=== PATIENT | male | born 1955 | race Caucasian/White ===

== ENCOUNTER → 2020-06-14 | Outpatient (CLI) | payer BC ==
[~2020-06-14] MED LIST: ISOVUE-370 76% 100ML VIAL As Ordered ONE
[2020-06-14 10:34] LABS: BLOOD UREA NITROGEN 24 MG/DL (7-18); CREATININE FOR GFR 1.17 MG/DL (0.70-1.30); GLOMERULAR FILTRATION RATE > 60.0 (>49)
--- NOTE | 2020-06-15 07:45 | REP ---
INDICATION: RIGHT LOWER QUADRANT PAIN. COMPARISON: None. TECHNIQUE: Axial contrast-enhanced images of the pelvis with coronal and sagittal reformations using 100 cc Isovue 370 intravenous contrast material. FINDINGS: Visualized portions of the small and large bowel are relatively normal and without acute obstruction or inflammatory process. Scattered sigmoid diverticula noted without acute diverticulitis. Normal terminal ileum, appendix and cecum identified in the right lower quadrant. Normal bladder and age-appropriate prostate/seminal vesicles. Evidence for prior inguinal hernia repair. Visualized abdominal aorta and vasculature appear normal. No ascites. No free air. No adenopathy. Musculoskeletal structures demonstrate age-related changes without acute osseous abnormality. IMPRESSION: No acute process appreciated. Few scattered sigmoid diverticula without acute diverticulitis. <Electronically signed by Adal Tristan > 06/15/20 [id number]
== END ==
LOC: M RAD 09:38
PROVIDERS: ATTEND Surgery
DX: R10.31 Right lower quadrant pain (principal); K57.30 Diverticulosis of large intestine without perforation or abscess without bleeding
CPT/HCPCS: 36415; 72193; 82565; 84520; Q9967

== ENCOUNTER → 2021-09-17 | Outpatient (CLI) | payer MEDICARE, BC ==
[2021-09-17 16:32] LABS: HEPATITIS B SURFACE ANTIBODY NEGATIVE (POSITIVE); HEPATITIS B SURFACE ANTIGEN NEGATIVE (NEGATIVE); HEPATITIS C VIRUS ABY INDEX 0.1 INDEX (<0.8)
[2021-09-19 04:07] LABS: HEPATITIS A IgG TOTAL Negative (Negative); HEPATITIS B CORE ANTIBODY IGG Negative (Negative)
== END ==
LOC: M PLALAB 12:29
PROVIDERS: ATTEND Internal Medicine Infectious Disease
DX: K76.0 Fatty (change of) liver, not elsewhere classified (principal)

== ENCOUNTER → 2022-02-21 | Outpatient (CLI) | payer MEDICARE, BC ==
[~2022-02-21] MED LIST changes: +GASTROGRAFIN SOLUTION 30ML (Q9963) As Ordered ONE
== END ==
LOC: M RAD 11:01
PROVIDERS: ATTEND Internal Medicine Gastroenterology
DX: R19.06 Epigastric swelling, mass or lump (principal); K45.8 Other specified abdominal hernia without obstruction or gangrene
CPT/HCPCS: 74177; Q9963; Q9967

== ENCOUNTER → 2022-03-13 | Outpatient (CLI) | payer MEDICARE, BC ==
[~2022-03-13] MED LIST changes: +ATOR40TA75 PO; +FINA5TAB2 PO; -GASTROGRAFIN SOLUTION 30ML (Q9963) As Ordered ONE; +GLIM2TAB29 PO; +HYDR-3363 PO; -ISOVUE-370 76% 100ML VIAL As Ordered ONE; +METF500T13 PO; +TAMS1CAP17 PO; +TERB250T91 PO
== END ==
LOC: M LABSMTC 10:09
PROVIDERS: ATTEND Anesthesiology
DX: Z01.812 Encounter for preprocedural laboratory examination (principal); Z11.52 Encounter for screening for COVID-19

== ENCOUNTER 2022-03-18 07:24 | Day surgery (SDC) | payer MEDICARE, BC ==
[~2022-03-18] VITALS: Ht 182.9 cm; Wt 112.0 kg
[~2022-03-18 07:24] MED LIST changes: +NS 1,000 ML IV ONE
[2022-03-18] MEDS ORDERED: fentaNYL 100 MCG/2 ML INJECTION As Ordered ONE (09:55)
[2022-03-18] MEDS ORDERED: LIDOCAINE 2% 100MG/5ML SDV (FOR ANES.) As Ordered ONE (10:15)
[2022-03-18] MEDS ORDERED: propofoL 200 MG/20 ML VIAL As Ordered ONE ×4 (10:15→10:48)
[2022-03-18] MEDS ORDERED: GLYCOPYRROLATE INJ 0.2 MG/ML 2 ML VIAL As Ordered ONE (10:15)
[2022-03-18] MEDS ORDERED: ELEVIEW SUBMUCOSAL INJ 10ML AMP As Ordered ONE ×2 (10:19→10:26)
[2022-03-18 11:20] VITALS: BP 144/94
== END 2022-03-18 11:35 | disposition home or self-care (01) ==
LOC: M OPP 07:24
PROVIDERS: ATTEND Internal Medicine Gastroenterology
DX: D12.0 Benign neoplasm of cecum (principal); D12.4 Benign neoplasm of descending colon; K57.30 Diverticulosis of large intestine without perforation or abscess without bleeding; K64.8 Other hemorrhoids; Z80.0 Family history of malignant neoplasm of digestive organs; K22.89 Other specified disease of esophagus; K44.9 Diaphragmatic hernia without obstruction or gangrene; K22.70 Barrett's esophagus without dysplasia; Z79.02 Long term (current) use of antithrombotics/antiplatelets; Z79.1 Long term (current) use of non-steroidal anti-inflammatories (NSAID); Z79.84 Long term (current) use of oral hypoglycemic drugs; Z79.899 Other long term (current) drug therapy; Z91.040 Latex allergy status; E11.9 Type 2 diabetes mellitus without complications; F84.0 Autistic disorder; N40.0 Benign prostatic hyperplasia without lower urinary tract symptoms; Z85.47 Personal history of malignant neoplasm of testis; Z92.3 Personal history of irradiation; F17.220 Nicotine dependence, chewing tobacco, uncomplicated; Z87.438 Personal history of other diseases of male genital organs; Z80.3 Family history of malignant neoplasm of breast; Z80.1 Family history of malignant neoplasm of trachea, bronchus and lung; Z80.43 Family history of malignant neoplasm of testis; Z80.52 Family history of malignant neoplasm of bladder
CPT/HCPCS: 43239; 45381; 45385; 88305; J3010

== ENCOUNTER → 2022-04-29 | Outpatient (CLI) | payer MEDICARE, BC ==
[~2022-04-29] MED LIST changes: -NS 1,000 ML IV ONE
[2022-04-29 13:19] LABS: CHLORIDE LEVEL 100 MMOL/L (98-107); POTASSIUM SERUM 4.5 MMOL/L (3.5-5.1); SODIUM LEVEL 138 MMOL/L (136-145)
[2022-04-29 13:20] LABS: ALBUMIN 4.2 G/DL (3.2-5.2); CARBON DIOXIDE LEVEL 25 MMOL/L (20-31)
[2022-04-29 13:20] LABS: CREATININE, URINE 101.3 MG/DL
[2022-04-29 13:22] LABS: HEMOGLOBIN A1c 6.6 % (4.0-6.0)
[2022-04-29 13:22] LABS: MALB URINE SIEMENS < 5.0 MG/DL; MAU/CREAT RATIO 4.9 MCG/MG (0.0-30.0)
[2022-04-29 13:23] LABS: BILIRUBIN,TOTAL 0.5 MG/DL (0.3-1.2)
[2022-04-29 13:24] LABS: BLOOD UREA NITROGEN 21 MG/DL (9-23); TRIGLYCERIDES LEVEL 367 MG/DL (<150)
[2022-04-29 13:25] LABS: ALKALINE PHOSPHATASE 67 U/L (46-116); CALCIUM LEVEL 9.8 MG/DL (8.3-10.6); GLUCOSE, FASTING 173 MG/DL (74-106)
[2022-04-29 13:27] LABS: ALT/SGPT 29 U/L (7.0-40); AST/SGOT 17 U/L (<34); CHOLESTEROL LEVEL 202 MG/DL (<200); CHOLESTEROL RISK RATIO 4.31 (<5); CREATININE FOR GFR 1.11 MG/DL (0.70-1.30); GLOMERULAR FILTRATION RATE > 60.0 (>49); HDL CHOLESTEROL 46.8 MG/DL (>40); LDL CHOLESTEROL 81.8 MG/DL (<100); NON-HDL-C 155 MG/DL
== END ==
LOC: M LAB 10:47
PROVIDERS: ATTEND Family Medicine
DX: E11.9 Type 2 diabetes mellitus without complications (principal)

== ENCOUNTER → 2022-04-29 | Outpatient (CLI) | payer MEDICARE, BC ==
[2022-04-29 13:25] LABS: BLOOD UREA NITROGEN 21 MG/DL (9-23); CREATININE FOR GFR 1.14 MG/DL (0.70-1.30); GLOMERULAR FILTRATION RATE > 60.0 (>49)
== END ==
LOC: M LAB 10:43
PROVIDERS: ATTEND Physician Assistant Medical
DX: K21.9 Gastro-esophageal reflux disease without esophagitis (principal)

== ENCOUNTER → 2022-05-07 | Outpatient (CLI) | payer MEDICARE, BC ==
[~2022-05-07] MED LIST changes: +ISOVUE-370 76% 100ML VIAL As Ordered ONE
== END ==
LOC: M RAD 13:59
PROVIDERS: ATTEND Otolaryngology
DX: R22.1 Localized swelling, mass and lump, neck (principal)
CPT/HCPCS: 70491; Q9967

== ENCOUNTER → 2022-07-03 | Outpatient (CLI) | payer MEDICARE, BC ==
[~2022-07-03] MED LIST changes: -ISOVUE-370 76% 100ML VIAL As Ordered ONE
== END ==
LOC: M RAD 14:47
PROVIDERS: ATTEND Otolaryngology
DX: R22.1 Localized swelling, mass and lump, neck (principal)

== ENCOUNTER → 2022-08-06 | Outpatient (CLI) | payer MEDICARE, BC ==
[~2022-08-06] MED LIST changes: +PANT40TA29 PO
== END ==
LOC: M LABSMTC 08:16
PROVIDERS: ATTEND Anesthesiology
DX: Z01.812 Encounter for preprocedural laboratory examination (principal); Z20.822 Contact with and (suspected) exposure to COVID-19

== ENCOUNTER 2022-08-11 08:50 | Day surgery (SDC) | payer MEDICARE, BC ==
[~2022-08-11] VITALS: Ht 182.9 cm; Wt 115.7 kg
[2022-08-11] MEDS ORDERED: LR 1,000 ML IV SCH ×3 (09:15→13:05)
[2022-08-11] MEDS ORDERED: ONDANSETRON 4MG 2ML VIAL As Ordered ONE (10:07)
[2022-08-11] MEDS ORDERED: SUGAMMADEX SODIUM 500 MG/5 ML VIAL (BRIDION) As Ordered ONE (10:07)
[2022-08-11] MEDS ORDERED: propofoL 200 MG/20 ML VIAL As Ordered ONE (10:07)
[2022-08-11] MEDS ORDERED: LIDOCAINE 2% 100MG/5ML SDV (FOR ANES.) As Ordered ONE (10:07)
[2022-08-11] MEDS ORDERED: ROCURONIUM BROMIDE 50MG/5ML VIAL As Ordered ONE (10:07)
[2022-08-11] MEDS ORDERED: fentaNYL 100 MCG/2 ML INJECTION As Ordered ONE (10:11)
[2022-08-11] MEDS ORDERED: MIDAZOLAM INJ 2MG/2ML VIAL As Ordered ONE (10:12)
[2022-08-11] MEDS ORDERED: OXYMETAZOLINE 0.05% NASAL SPRAY (AFRIN) As Ordered ONE (10:54)
[2022-08-11] MEDS ORDERED: LIDOCAINE W/EPINEPHRINE 1% 20ML VIAL As Ordered ONE (10:54)
[2022-08-11] MEDS ORDERED: METHYLENE BLUE 0.5% (5MG/ML) 10 ML AMP (PROVAYBLUE) As Ordered ONE (10:55)
[2022-08-11] MEDS ORDERED: ACETAMINOPHEN 1000MG 100ML IV BAG As Ordered ONE ×2 (11:44→13:00)
[2022-08-11] MEDS ORDERED: fentaNYL 100 MCG/2 ML INJECTION IV PRN (12:10)
[2022-08-11] MEDS ORDERED: oxyCODONE 5MG TAB PO PRN (12:10)
[2022-08-11] MEDS ORDERED: ONDANSETRON 4MG 2ML VIAL IV PRN (12:10)
[2022-08-11] MEDS ORDERED: ESMOLOL INJ 100MG/10ML VIAL As Ordered ONE (12:55)
[2022-08-11 13:25] VITALS: BP 144/71
== END 2022-08-11 13:41 | disposition home or self-care (01) ==
LOC: M SDC 08:50
PROVIDERS: ATTEND Otolaryngology
DX: R22.1 Localized swelling, mass and lump, neck (principal); D10.9 Benign neoplasm of pharynx, unspecified; R06.09 Other forms of dyspnea; R91.8 Other nonspecific abnormal finding of lung field; Z85.47 Personal history of malignant neoplasm of testis; Z91.040 Latex allergy status
CPT/HCPCS: 31536; 88305; J0131; J1100; J2250; J2405; J3010; Q9968

== ENCOUNTER → 2022-10-21 | Outpatient (CLI) | payer MEDICARE, BC ==
[2022-10-21 12:45] LABS: HEMOGLOBIN A1c 6.5 % (4.0-6.0)
[2022-10-21 12:49] LABS: BLOOD UREA NITROGEN 18 MG/DL (9-23); CALCIUM LEVEL 9.3 MG/DL (8.3-10.6); CARBON DIOXIDE LEVEL 24 MMOL/L (20-31); CHLORIDE LEVEL 105 MMOL/L (98-107); CREATININE FOR GFR 1.04 MG/DL (0.70-1.30); GLOMERULAR FILTRATION RATE > 60.0 (>49); GLUCOSE, FASTING 87 MG/DL (74-106); POTASSIUM SERUM 4.6 MMOL/L (3.5-5.1); SODIUM LEVEL 136 MMOL/L (136-145)
== END ==
LOC: M LAB 11:05
PROVIDERS: ATTEND Family Medicine
DX: E11.9 Type 2 diabetes mellitus without complications (principal)

== ENCOUNTER → 2023-01-14 | Outpatient (CLI) | payer MEDICARE, BC | LOC: M RAD 13:49 | PROVIDERS: ATTEND Otolaryngology | DX: R22.1 Localized swelling, mass and lump, neck (principal) ==

== ENCOUNTER 2023-07-14 06:31 | Day surgery (SDC) | payer BC, MEDICARE ==
[~2023-07-14] VITALS: Ht 182.9 cm; Wt 110.7 kg
[2023-07-14] MEDS ORDERED: SIMETHICONE 40MG/0.6ML DROPS 30ML As Ordered ONE (06:46)
[2023-07-14] MEDS: NS 1,000 ML IV ONE (07:14)
[2023-07-14] MEDS ORDERED: propofoL 500 MG/50 ML VIAL As Ordered ONE (07:37)
[2023-07-14] MEDS ORDERED: GLYCOPYRROLATE INJ 0.2 MG/ML 2 ML VIAL As Ordered ONE (07:37)
[2023-07-14] MEDS ORDERED: LIDOCAINE 2% 100MG/5ML SDV (FOR ANES.) As Ordered ONE (07:37)
[2023-07-14 07:49] VITALS: TEMP 96.9
[2023-07-14 08:05] VITALS: BP 131/76; O2SAT 99
== END 2023-07-14 08:06 | disposition home or self-care (01) ==
LOC: M OPP 06:31
PROVIDERS: ATTEND Internal Medicine Gastroenterology
DX: D12.0 Benign neoplasm of cecum (principal); K57.30 Diverticulosis of large intestine without perforation or abscess without bleeding; Z98.890 Other specified postprocedural states; Z79.02 Long term (current) use of antithrombotics/antiplatelets; Z79.1 Long term (current) use of non-steroidal anti-inflammatories (NSAID); Z79.84 Long term (current) use of oral hypoglycemic drugs; Z79.899 Other long term (current) drug therapy; Z88.8 Allergy status to other drugs, medicaments and biological substances; Z91.048 Other nonmedicinal substance allergy status

== ENCOUNTER → 2023-08-10 | Outpatient (CLI) | payer BC, MEDICARE | LOC: M RAD 10:17 | PROVIDERS: ATTEND Otolaryngology | DX: R22.1 Localized swelling, mass and lump, neck (principal) ==

== ENCOUNTER → 2023-11-02 | Outpatient (CLI) | payer MEDICARE ==
[2023-11-02 10:55] LABS: BASO % 0.7 % (0.0-1.0); EOS % 0.5 % (0.0-3.0); HEMOGLOBIN 13.3 g/dl (13.5-17.5); LYMPH # 2.3 10^3/uL (1.5-5.0); LYMPH % 37.9 % (24.0-44.0); MEAN CORPUSCULAR HEMOGLOBIN 30.7 pg (27.0-33.0); MEAN CORPUSCULAR HGB CONC 33.3 g/dl (32.0-36.5); MEAN CORPUSCULAR VOLUME 92.4 fl (80.0-96.0); MONO # 0.4 10^3/uL (0.0-0.8); MONO % 6.7 % (2.0-8.0); NEUTROPHILS # 3.2 10^3/uL (1.5-8.5); PLATELET COUNT, AUTOMATED 202 10^3/uL (150-450); RED BLOOD COUNT 4.33 10^6/uL (4.30-6.10)
[2023-11-02 11:22] LABS: CREATININE, URINE 131.8 MG/DL; MALB URINE SIEMENS < 3.0 MG/L; MAU/CREAT RATIO 2.2 MCG/MG (0.0-30.0)
[2023-11-02 11:25] LABS: ALBUMIN 4.1 G/DL (3.2-5.2); ALKALINE PHOSPHATASE 66 U/L (46-116); ALT/SGPT 24 U/L (7.0-40); AST/SGOT 9 U/L (<34); BILIRUBIN,TOTAL 0.4 MG/DL (0.3-1.2); BLOOD UREA NITROGEN 12 MG/DL (9-23); CALCIUM LEVEL 9.5 MG/DL (8.3-10.6); CARBON DIOXIDE LEVEL 24 MMOL/L (20-31); CHLORIDE LEVEL 108 MMOL/L (98-107); CREATININE FOR GFR 1.01 MG/DL (0.70-1.30); GLOMERULAR FILTRATION RATE > 60.0 (>49); GLUCOSE, FASTING 141 MG/DL (74-106); POTASSIUM SERUM 4.4 MMOL/L (3.5-5.1); SODIUM LEVEL 137 MMOL/L (136-145); TOTAL PROTEIN 6.6 G/DL (5.7-8.2)
[2023-11-02 12:55] LABS: HEMOGLOBIN A1c 6.6 % (4.0-6.0)
== END ==
LOC: M RAD 09:29
PROVIDERS: ATTEND Family Medicine
DX: S62.357A Nondisplaced fracture of shaft of fifth metacarpal bone, left hand, initial encounter for closed fracture (principal); E11.9 Type 2 diabetes mellitus without complications; K76.0 Fatty (change of) liver, not elsewhere classified; W19.XXXA Unspecified fall, initial encounter; Y92.9 Unspecified place or not applicable; Y93.9 Activity, unspecified; Y99.9 Unspecified external cause status

== ENCOUNTER → 2023-11-10 | Outpatient (CLI) | payer MEDICARE | LOC: M SOG 07:51 | PROVIDERS: ATTEND Physician Assistant | DX: S62.357D Nondisplaced fracture of shaft of fifth metacarpal bone, left hand, subsequent encounter for fracture with routine healing (principal) ==

== ENCOUNTER → 2023-11-23 | Outpatient (CLI) | payer MEDICARE | LOC: M SOG 08:01 | PROVIDERS: ATTEND Physician Assistant | DX: S62.357A Nondisplaced fracture of shaft of fifth metacarpal bone, left hand, initial encounter for closed fracture (principal); W18.30XA Fall on same level, unspecified, initial encounter; Y92.009 Unspecified place in unspecified non-institutional (private) residence as the place of occurrence of the external cause ==

== ENCOUNTER → 2023-12-29 | Outpatient (CLI) | payer MEDICARE, BC | LOC: M SOG 08:04 | PROVIDERS: ATTEND Physician Assistant | DX: S62.357A Nondisplaced fracture of shaft of fifth metacarpal bone, left hand, initial encounter for closed fracture (principal); Y93.9 Activity, unspecified; Y92.9 Unspecified place or not applicable ==

== ENCOUNTER → 2024-02-16 | Outpatient (CLI) | payer MEDICARE | LOC: M RAD 10:54 | PROVIDERS: ATTEND Otolaryngology | DX: R22.1 Localized swelling, mass and lump, neck (principal) ==

== ENCOUNTER → 2024-02-23 | Outpatient (REF) | payer MEDICARE, OTHER ==
[2024-02-23 17:24] LABS: HEMATOCRIT 40.2 % (42.0-52.0); HEMOGLOBIN 13.3 g/dl (13.5-17.5); MEAN CORPUSCULAR HEMOGLOBIN 30.7 pg (27.0-33.0); MEAN CORPUSCULAR HGB CONC 33.1 g/dl (32.0-36.5); MEAN CORPUSCULAR VOLUME 92.8 fl (80.0-96.0); PLATELET COUNT, AUTOMATED 240 10^3/uL (150-450); RED BLOOD COUNT 4.33 10^6/uL (4.30-6.10); WHITE BLOOD COUNT 8.3 10^3/uL (4.0-10.0)
[2024-02-23 17:25] LABS: ALBUMIN 4.2 G/DL (3.2-5.2); ALKALINE PHOSPHATASE 68 U/L (46-116); ALT/SGPT 24 U/L (7.0-40); AST/SGOT 10 U/L (<34); BILIRUBIN,TOTAL 0.4 MG/DL (0.3-1.2); BLOOD UREA NITROGEN 20 MG/DL (9-23); CALCIUM LEVEL 10.4 MG/DL (8.3-10.6); CARBON DIOXIDE LEVEL 28 MMOL/L (20-31); CHLORIDE LEVEL 106 MMOL/L (98-107); CREATININE FOR GFR 1.17 MG/DL (0.70-1.30); GLOMERULAR FILTRATION RATE > 60.0 (>49); GLUCOSE, FASTING 98 MG/DL (74-106); POTASSIUM SERUM 4.5 MMOL/L (3.5-5.1); SODIUM LEVEL 140 MMOL/L (136-145); TOTAL PROTEIN 7.1 G/DL (5.7-8.2)
[2024-02-23 17:29] LABS: THYROID STIMULATING HORMONE 1.421 uIU/ML (0.55-4.78)
[2024-02-23 18:04] LABS: HEMOGLOBIN A1c 6.5 % (4.0-6.0)
== END ==
LOC: M SFHCLERA 11:09
PROVIDERS: ATTEND Physician Assistant
DX: R53.83 Other fatigue (principal); Z79.899 Other long term (current) drug therapy

== ENCOUNTER → 2024-05-18 | Outpatient (CLI) | payer MEDICARE | LOC: M RAD 06:59 | PROVIDERS: ATTEND Physician Assistant | DX: M17.11 Unilateral primary osteoarthritis, right knee (principal) ==

== ENCOUNTER → 2024-12-15 | Outpatient (REF) | payer MEDICARE ==
[2024-12-15 17:35] LABS: ALT/SGPT 27.0 U/L (7.0-40); AST/SGOT 19.0 U/L (<34); CALCIUM LEVEL 9.2 MG/DL (8.3-10.6); CARBON DIOXIDE LEVEL 24.0 MMOL/L (20-31); CHLORIDE LEVEL 103.0 MMOL/L (98-107); CHOLESTEROL LEVEL 176.0 MG/DL (<200); CHOLESTEROL RISK RATIO 3.05 (<5); CREATININE FOR GFR 1.03 MG/DL (0.70-1.30); GLOMERULAR FILTRATION RATE 79.1 (>49); LDL CHOLESTEROL 79.0 MG/DL (<100); MAGNESIUM LEVEL 2.0 MG/DL (1.8-2.4); NON-HDL-C 118.4 MG/DL; POTASSIUM SERUM 4.3 MMOL/L (3.5-5.1); SODIUM LEVEL 140.0 MMOL/L (136-145); TRIGLYCERIDES LEVEL 197.0 MG/DL (<150)
[2024-12-15 17:52] LABS: BASO # 0.0 10^3/uL (0.0-0.2); BASO % 0.4 % (0.0-1.0); EOS # 0.1 10^3/uL (0.0-0.5); EOS % 0.7 % (0.0-3.0); LYMPH # 2.5 10^3/uL (1.5-5.0); LYMPH % 35.1 % (24.0-44.0); MONO # 0.4 10^3/uL (0.0-0.8); MONO % 5.5 % (2.0-8.0); NEUTROPHILS # 4.1 10^3/uL (1.5-8.5); NEUTROPHILS % 58.0 % (36.0-66.0); PLATELET COUNT, AUTOMATED 225 10^3/uL (150-450)
[2024-12-15 18:04] LABS: ESTIMATED AVERAGE GLUCOSE 146.0 MG/DL (60-110)
[2024-12-15 18:20] LABS: CREATININE, URINE 40.8 MG/DL
[2024-12-15 18:21] LABS: MALB URINE SIEMENS < 3.0 MG/L
== END ==
LOC: M SFHCLERA 11:06
PROVIDERS: ATTEND Family Medicine
DX: Z00.00 Encounter for general adult medical examination without abnormal findings (principal); R25.2 Cramp and spasm; E11.9 Type 2 diabetes mellitus without complications

== ENCOUNTER → 2025-04-05 | Outpatient (CLI) | payer MEDICARE ==
[2025-04-05 10:38] LABS: BASO # 0.0 10^3/uL (0.0-0.2); BASO % 0.5 % (0.0-1.0); EOS # 0.0 10^3/uL (0.0-0.5); EOS % 0.4 % (0.0-3.0); LYMPH # 2.8 10^3/uL (1.5-5.0); LYMPH % 37.3 % (24.0-44.0); MONO # 0.5 10^3/uL (0.0-0.8); MONO % 6.4 % (2.0-8.0); NEUTROPHILS # 4.1 10^3/uL (1.5-8.5); NEUTROPHILS % 55.1 % (36.0-66.0); PLATELET COUNT, AUTOMATED 239 10^3/uL (150-450)
[2025-04-05 11:01] LABS: ALT/SGPT 22.0 U/L (7.0-40); AST/SGOT 14.0 U/L (<34); CALCIUM LEVEL 9.5 MG/DL (8.3-10.6); CARBON DIOXIDE LEVEL 27.0 MMOL/L (20-31); CHLORIDE LEVEL 101.0 MMOL/L (98-107); CREATININE FOR GFR 1.06 MG/DL (0.70-1.30); GLOMERULAR FILTRATION RATE 76.4 (>49); IRON (FE) 116.0 UG/DL (65-175); PERCENT SATURATION 35.2 % (19.7-50.0); POTASSIUM SERUM 4.9 MMOL/L (3.5-5.1); SODIUM LEVEL 136.0 MMOL/L (136-145)
[2025-04-05 11:11] LABS: INR 0.96
== END ==
LOC: M LAB 09:31
PROVIDERS: ATTEND Physician Assistant
DX: Z01.818 Encounter for other preprocedural examination (principal)

== ENCOUNTER → 2025-04-13 | Outpatient (CLI) | payer MEDICARE | LOC: M RAD 09:16 | PROVIDERS: ATTEND Physician Assistant | DX: R10.31 Right lower quadrant pain (principal) ==